=== PATIENT | female | born 1985 | race Caucasian/White ===

== ENCOUNTER → 2016-12-10 | Outpatient (REF) | payer OTHER | LOC: M SFHCLERA 18:21 | PROVIDERS: ATTEND Nurse Practitioner Family | DX: J02.9 Acute pharyngitis, unspecified (principal) ==

== ENCOUNTER → 2022-06-21 | Outpatient (REF) | payer OTHER ==
[2022-06-21 13:18] LABS: APPEARANCE, URINE CLEAR (CLEAR); BACTERIA, URINE AUTO NEGATIVE (NEGATIVE); BILIRUBIN, URINE AUTO NEGATIVE (NEGATIVE); BLOOD, URINE BLOOD 1+ (NEGATIVE); COLOR, URINE YELLOW (YELLOW); GLUCOSE, URINE (UA) AUTO NEGATIVE (NEGATIVE); KETONE, URINE AUTO NEGATIVE (NEGATIVE); LEUKOCYTE ESTERASE, URINE AUTO NEGATIVE (NEGATIVE); NITRITE, URINE AUTO NEGATIVE (NEGATIVE); PROTEIN, URINE AUTO NEGATIVE (NEGATIVE); RBC, URINE AUTO 1 /HPF (0-3); SPECIFIC GRAVITY URINE AUTO 1.017 (1.002-1.035); SQUAMOUS EPITHELIAL CELL UR AU 5 /HPF (0-6); UROBILINOGEN, URINE AUTO 0.2 mg/dL (0.0-2.0); WBC, URINE AUTO 1 /HPF (0-3)
[2022-06-21 13:21] LABS: BASO # 0.1 10^3/uL (0.0-0.2); BASO % 0.7 % (0.0-1.0); EOS # 0.4 10^3/uL (0.0-0.5); EOS % 5.2 % (0.0-3.0); HEMATOCRIT 40.9 % (36.0-47.0); HEMOGLOBIN 13.3 g/dl (12.0-15.5); LYMPH # 1.7 10^3/uL (1.5-5.0); LYMPH % 20.3 % (24.0-44.0); MEAN CORPUSCULAR HEMOGLOBIN 32.7 pg (27.0-33.0); MEAN CORPUSCULAR HGB CONC 32.5 g/dl (32.0-36.5); MEAN CORPUSCULAR VOLUME 100.5 fl (80.0-96.0); MONO # 0.4 10^3/uL (0.0-0.8); MONO % 5.1 % (2.0-8.0); NEUTROPHILS # 5.8 10^3/uL (1.5-8.5); NEUTROPHILS % 68.5 % (36.0-66.0); PLATELET COUNT, AUTOMATED 388 10^3/uL (150-450); RED BLOOD COUNT 4.07 10^6/uL (4.00-5.40); WHITE BLOOD COUNT 8.5 10^3/uL (4.0-10.0)
[2022-06-21 13:41] LABS: ERYTHROCYTE SEDIMENTATION RATE 10 mm/hr (0-20)
[2022-06-21 13:44] LABS: TOTAL PROTEIN,RANDOM URINE 8.4 MG/DL (0.0-14.0)
[2022-06-21 13:47] LABS: C REACTIVE PROTEIN QUANTITATIV < 0.40 MG/DL (<1.0)
[2022-06-21 13:48] LABS: COMPLEMENT C3 105.8 MG/DL (84.0-160.0); COMPLEMENT C4 17.7 MG/DL (12-36); CPK CREATINE PHOSPHOKINASE 63 U/L (34-145)
[2022-06-21 13:49] LABS: CREATININE,RANDOM URINE 76.3 MG/DL; IRON (FE) 127 UG/DL (50-170); MAGNESIUM LEVEL 1.8 MG/DL (1.8-2.4); PHOSPHORUS LEVEL 3.4 MG/DL (2.5-4.9)
[2022-06-21 13:51] LABS: TOTAL 25(OH) VITAMIN D 18.8 NG/ML (20.0-100.0); VITAMIN B12 LEVEL 368 PG/ML (211-911)
== END ==
LOC: M SFHCRHEU 10:43
PROVIDERS: ATTEND Internal Medicine
DX: R76.8 Other specified abnormal immunological findings in serum (principal)

== ENCOUNTER → 2022-08-05 | Outpatient (CLI) | payer BC, OTHER | LOC: M SLEEP HO 11:02 | PROVIDERS: ATTEND Internal Medicine | DX: R53.82 Chronic fatigue, unspecified (principal) ==

== ENCOUNTER → 2022-08-27 | Outpatient (REF) | payer OTHER ==
[2022-08-28 18:11] LABS: EBV VIRAL CAPSID AG IgG >600.0 U/mL (0.0-17.9); EBV VIRAL CAPSID AG IgM <36.0 U/mL (0.0-35.9)
== END ==
LOC: M SFHCRHEU 10:25
PROVIDERS: ATTEND Internal Medicine
DX: R53.82 Chronic fatigue, unspecified (principal)

== ENCOUNTER → 2022-09-24 | Outpatient (CLI) | payer BC, OTHER | LOC: M PLAIMG 07:39 | PROVIDERS: ATTEND Internal Medicine | DX: M25.541 Pain in joints of right hand (principal); M25.542 Pain in joints of left hand ==

== ENCOUNTER → 2023-10-20 | Outpatient (REF) | payer BC ==
[2023-10-20 18:30] LABS: PERCENT SATURATION 8.3 % (13.2-45.0)
[2023-10-20 18:33] LABS: FERRITIN 6.1 NG/ML (7.3-270.7)
== END ==
LOC: M SFHCRHEU 12:06
PROVIDERS: ATTEND Internal Medicine
DX: R53.82 Chronic fatigue, unspecified (principal)